=== PATIENT | male | born 1930 | race Caucasian/White ===

== ENCOUNTER 2017-10-01 08:42 | Emergency (ER) | payer MEDICARE, OTHER ==
[~2017-10-01] VITALS: Ht 177.8 cm; Wt 69.0 kg
[~2017-10-01 08:42] MED LIST: ALFU10TA10 PO; CARDIZEM 120 MG PO; CARSR60C PO; GLUC100017 PO; GLUC1CAP36 PO; IMIQ7.5C2 TP; MULT1TAB PO; RIVA10TA PO; SIMV10TA2 PO
[2017-10-01 09:11] LABS: BASOPHILS % (AUTO) 0.2 % (0-1); EOSINOPHILS # (AUTO) 0.3 X10'3 (0-0.9); EOSINOPHILS % (AUTO) 5.4 % (0-6); HEMATOCRIT 49.1 % (42.0-52.0); HEMOGLOBIN 16.5 g/dl (14.0-17.9); LYMPHOCYTES # (AUTO) 0.9 X10'3 (1.1-4.8); LYMPHOCYTES % (AUTO) 15.3 % (21-51); MEAN CORPUSCULAR HEMOGLOBIN 33.5 PG (27.0-31.0); MEAN CORPUSCULAR HGB CONC 33.7 % (33.0-36.5); MEAN CORPUSCULAR VOLUME 99.3 FL (78-98); MEAN PLATELET VOLUME 9.6 FL (7.4-10.4); MONOCYTES # (AUTO) 0.4 X10'3 (0-0.9); MONOCYTES % (AUTO) 6.4 % (2-12); NEUTROPHILS # (AUTO) 4.4 X10'3 (1.8-7.7); NEUTROPHILS % (AUTO) 72.7 % (42-75); PLATELET COUNT 164 X10'3 (140-440); RED BLOOD COUNT 4.94 X10'6 (4.70-6.10); RED CELL DISTRIBUTION WIDTH 13.1 % (11.5-14.5)
[2017-10-01 09:20] LABS: INR 1.2 INR; PARTIAL THROMBOPLASTIN TIME 30 SECONDS (22-32); PROTHROMBIN TIME 12.7 SECONDS (9.0-12.0)
[2017-10-01 09:26] LABS: ALANINE AMINOTRANSFERASE 30 U/L (12-78); ALBUMIN 3.7 G/DL (3.4-5.0); ALBUMIN/GLOBULIN RATIO 1.1 (1.1-1.5); ALKALINE PHOSPHATASE 62 IU/L (46-116); ANION GAP 8 (8-16); ASPARTATE AMINO TRANSFERASE 22 U/L (10-37); BILIRUBIN,TOTAL 0.8 MG/DL (0.1-1.0); BLOOD UREA NITROGEN 11 MG/DL (7-18); BUN/CREATININE RATIO 10.6 (5.4-32.0); CALCIUM 9.2 MG/DL (8.5-10.1); CHLORIDE 102 MMOL/L (99-107); CREATININE 1.04 MG/DL (0.60-1.10); GLUCOSE 213 MG/DL (70-104); SODIUM 139 MMOL/L (135-145); TOTAL CARBON DIOXIDE 28.8 MMOL/L (24-32); eGFR 68 ML/MIN
[2017-10-01] MEDS ORDERED: fentaNYL/PF 50MCG/1 ML 2ML syringe IV ONE (10:35)
[2017-10-01] MEDS ORDERED: MIDAZolam 5mg/ml 2ml vial IV ONE (10:35)
[2017-10-01 11:02] LABS: MAGNESIUM 2.3 MG/DL (1.5-2.4)
[2017-10-01 12:49] VITALS: BP 116/72
== END 2017-10-01 12:52 | disposition home or self-care (01) ==
LOC: ER 08:42
DX: I48.91 Unspecified atrial fibrillation (principal); E78.00 Pure hypercholesterolemia, unspecified; Z79.899 Other long term (current) drug therapy
CPT/HCPCS: 36415; 71045; 80053; 83735; 84484; 85025; 85610; 85730; 92960; 93005; 96374; 99291; J2250; J3010; J7030; 99152; 99153

== ENCOUNTER 2021-02-21 10:15 | Observation (INO) | payer OTHER ==
[~2021-02-21] VITALS: Ht 177.8 cm; Wt 66.0 kg
[2021-02-21] MEDS ORDERED: LIDOcaine Viscous 15ml cup MM ONE (12:00)
[2021-02-21] MEDS ORDERED: mag hydrox/Alum hydrox/simeth 30ml oral suspension PO ONE (12:00)
[2021-02-21] MEDS ORDERED: normal saline 1000ML IV soln IVB ONE (13:10)
[2021-02-21] MEDS ORDERED: normal saline 1000ml 1,000 ML IV ONE (13:10)
[2021-02-21] MEDS ORDERED: pantoprazole 40 MG vial IV ONE (13:15)
[2021-02-21] MEDS ORDERED: SIMV10TA98 PO (13:58)
[2021-02-21] MEDS ORDERED: RIVA20TA PO (13:58)
[2021-02-21] MEDS ORDERED: CETI10TA15 PO (13:58)
[2021-02-21] MEDS ORDERED: SOTA80TA PO (13:58)
[2021-02-21 14:12] LABS: ALANINE AMINOTRANSFERASE 32 U/L (12-78); ALBUMIN/GLOBULIN RATIO 1.1 (1.1-1.5); ALKALINE PHOSPHATASE 91 IU/L (46-116); ANION GAP 7 (8-16); ASPARTATE AMINO TRANSFERASE 28 U/L (10-37); BILIRUBIN,TOTAL 1.3 MG/DL (0.1-1.0); BLOOD UREA NITROGEN 15 MG/DL (7-18); BUN/CREATININE RATIO 15.2 (5.4-32.0); CALCIUM 9.4 MG/DL (8.5-10.1); CHLORIDE 106 MMOL/L (99-107); CREATININE 0.99 MG/DL (0.60-1.10); GLUCOSE 141 MG/DL (70-104); POTASSIUM 4.2 MMOL/L (3.5-5.1); SODIUM 144 MMOL/L (135-145); TOTAL CARBON DIOXIDE 30.7 MMOL/L (24-32); TOTAL PROTEIN 7.6 G/DL (6.4-8.2); eGFR 71 ML/MIN
[2021-02-21] MEDS ORDERED: normal saline 1000ml 1,000 ML IV SCH (14:15)
[2021-02-21] MEDS ORDERED: potassium Cl 20 mEq SR tablet PO PRN ×2 (14:15)
[2021-02-21] MEDS ORDERED: magnesium Cl slow-release 64mg tablet PO PRN (14:15)
[2021-02-21] MEDS ORDERED: potassium Cl 40MEQ/1/2NS 520ml 520 ML IV PRN ×2 (14:15)
[2021-02-21] MEDS ORDERED: morphine 2 MG/ML inj. syringe IV PRN (14:15)
[2021-02-21] MEDS ORDERED: magnesium 4gm in 100ml NS 100 ML IV PRN (14:15)
[2021-02-21] MEDS ORDERED: ondansetron/PF 4mg/2ml inj IV PRN (14:15)
[2021-02-21] MEDS ORDERED: magnesium 2GM in 50ml NS 50 ML IV PRN (14:15)
[2021-02-21] MEDS ORDERED: LIDOcaine Viscous 15ml cup MM PRN (14:25)
[2021-02-21 14:27] LABS: LYMPHOCYTES # (AUTO) 0.9 X10'3 (1.1-4.8)
[2021-02-21 14:29] LABS: BASOPHILS % (AUTO) 0.2 % (0-1); EOSINOPHILS % (AUTO) 0.1 % (0-6); HEMATOCRIT 52.7 % (42.0-52.0); MEAN CORPUSCULAR HEMOGLOBIN 32.3 PG (27.0-31.0); MEAN CORPUSCULAR HGB CONC 32.2 g/dL (33.0-36.5); MEAN CORPUSCULAR VOLUME 100.5 FL (78-98); MONOCYTES # (AUTO) 0.3 X10'3 (0-0.9); MONOCYTES % (AUTO) 3.8 % (2-12); NEUTROPHILS # (AUTO) 5.9 X10'3 (1.8-7.7); NEUTROPHILS % (AUTO) 82.9 % (42-75); PLATELET COUNT 158 X10'3 (140-440); RED BLOOD COUNT 5.25 X10'6 (4.70-6.10); RED CELL DISTRIBUTION WIDTH 13.1 % (11.5-14.5); WHITE BLOOD COUNT 7.1 X10'3 (4.5-11.0)
[2021-02-21 14:52] LABS: PARTIAL THROMBOPLASTIN TIME 33 SECONDS (22-32)
[2021-02-21] MEDS ORDERED: K and/or MAG REPLACEMENT MC SCH (20:00)
--- NOTE | 2021-02-21 20:18 | NUR ---
Report given to MARIO Johnson on the Surg. Floor.
[2021-02-21 20:30] VITALS: BP 147/88
--- NOTE | 2021-02-21 20:30 | NUR ---
Patient in room [facility]. I have received report from MARIO Johnson and had the opportunity to ask questions and assume patient care. Pt assisted pt to room and took report from er. Addendum: 02/21/21 at 2336 by Timbo Marin RN Amended: Links added.
[2021-02-21] MEDS ORDERED: GLUC-237 PO (23:25)
[2021-02-22] VITALS: BP 111/73
--- NOTE | 2021-02-22 05:06 | NUR ---
NO COMPLANTS, IV SL. NO SOB NO PAIN. PT HOPING TO GO HOME THIS MORNING Addendum: 02/22/21 at 0507 by Timbo Marin RN Amended: Links added.
[2021-02-22 06:04] LABS: BASOPHILS % (AUTO) 0.2 % (0-1); EOSINOPHILS # (AUTO) 0.1 X10'3 (0-0.9); EOSINOPHILS % (AUTO) 0.9 % (0-6); HEMATOCRIT 48.3 % (42.0-52.0); HEMOGLOBIN 15.6 g/dl (14.0-17.9); LYMPHOCYTES # (AUTO) 1.5 X10'3 (1.1-4.8); LYMPHOCYTES % (AUTO) 20.3 % (21-51); MEAN CORPUSCULAR HEMOGLOBIN 32.6 PG (27.0-31.0); MEAN CORPUSCULAR HGB CONC 32.4 g/dL (33.0-36.5); MEAN CORPUSCULAR VOLUME 100.6 FL (78-98); MEAN PLATELET VOLUME 10.5 FL (7.4-10.4); MONOCYTES # (AUTO) 0.6 X10'3 (0-0.9); MONOCYTES % (AUTO) 8.8 % (2-12); NEUTROPHILS # (AUTO) 5.2 X10'3 (1.8-7.7); NEUTROPHILS % (AUTO) 69.8 % (42-75); PLATELET COUNT 137 X10'3 (140-440); WHITE BLOOD COUNT 7.4 X10'3 (4.5-11.0)
[2021-02-22 06:08] LABS: ALBUMIN 3.3 G/DL (3.4-5.0); ANION GAP 10 (8-16); BLOOD UREA NITROGEN 14 MG/DL (7-18); BUN/CREATININE RATIO 15.9 (5.4-32.0); CALCIUM 8.6 MG/DL (8.5-10.1); CHLORIDE 110 MMOL/L (99-107); CREATININE 0.88 MG/DL (0.60-1.10); GLUCOSE 87 MG/DL (70-104); MAGNESIUM 2.4 MG/DL (1.5-2.4); POTASSIUM 3.6 MMOL/L (3.5-5.1); SODIUM 146 MMOL/L (135-145); TOTAL CARBON DIOXIDE 25.8 MMOL/L (24-32); eGFR 82 ML/MIN
--- NOTE | 2021-02-22 06:33 | NUR ---
Problems reprioritized. Patient report given, questions answered & plan of care reviewed with MARIO DICKERSON. Addendum: 02/22/21 at 0634 by Timbo Marin RN Amended: Links added.
--- NOTE | 2021-02-22 06:46 | NUR ---
Patient in room [facility]. I have received report from Tere MARTIN and had the opportunity to ask questions and assume patient care.
[2021-02-22 07:00] VITALS: BP 124/74
--- NOTE | 2021-02-22 09:42 | NUR ---
Paged Dr. Lott PAGER ID: [phone] MESSAGE: Surgical Clara MARTIN ext [phone]. RE: Pérez Mays. Patient asking about his Xarelto and other home meds. He has complaints this am, tolerated the breakfast.
[2021-02-22 11:00] VITALS: BP 149/103
--- NOTE | 2021-02-22 11:11 | NUR ---
Dr. Lott called me back, she said she would have to talk to the GI doctor first about the next steps before resuming pills. I communicated this back to the patient. Patient stated "another nurse came here told me I can get a solid food but I told her I cannot do that if they will scope me!" I told the patient that his diet order currently still on clear liquid and I will let him know if anything change. Addendum: 02/22/21 at 1116 by Clara Navarro RN So far we do not have any EGD order yet at this time, I communicated this to the patient.
--- NOTE | 2021-02-22 12:10 | NUR ---
Per Dr. Lott, we do not need to do ST evaluation and that she spoke to Dr. Barlow about this patient. Per Dr. Lott, Dr. Barlow did not recommend EGD and also that she is planning to send patient home today. I asked Dr. Lott about advancing diet to full liquid or soft diet, she replied to me "no need for that we can start him on heart healthy diet!"
--- NOTE | 2021-02-22 14:08 | NUR ---
Paged Dr. Lott PAGER ID: [phone] MESSAGE: Surgical Osvaldo MARTIN [phone]. RE: Pérez Mays. Patient tolerated his solid food lunch, no problem noted. He is looking forward to be discharge today
[2021-02-22] MEDS ORDERED: PANT40TA54 PO (14:22)
--- NOTE | 2021-02-22 15:40 | NUR ---
Discharged patient. Discharge instructions given to patient. Patient verbalized understanding of all instructions made. Peripheral IV catheter removed, tip intact. Instructed patient to ensure he has all his belongings with him before leaving the hospital. New prescription was called in to her pharmacy c/o Nerissa.
== END 2021-02-22 15:29 | disposition home or self-care (01) ==
LOC: ER 10:16 → ED HOLD 14:21 → SUR 3N 20:30
PROVIDERS: ADMIT Internal Medicine; ATTEND Internal Medicine
DX: R13.10 Dysphagia, unspecified (principal); I25.10 Atherosclerotic heart disease of native coronary artery without angina pectoris; I48.20 Chronic atrial fibrillation, unspecified; I25.2 Old myocardial infarction; E78.00 Pure hypercholesterolemia, unspecified; Z95.0 Presence of cardiac pacemaker; Z79.899 Other long term (current) drug therapy; Z98.890 Other specified postprocedural states
CPT/HCPCS: 36415; 71046; 80048; 80053; 83735; 85025; 85610; 85730; 87081; 96361; 96374; 99284; C9113; G0378; J7030

== ENCOUNTER 2021-09-08 08:19 | Emergency (ER) | payer OTHER ==
[~2021-09-08] VITALS: Ht 177.8 cm; Wt 65.9 kg
[~2021-09-08 08:19] MED LIST changes: -ALFU10TA10 PO; -CARDIZEM 120 MG PO; -CARSR60C PO; +CETI10TA15 PO; -GLUC100017 PO; -GLUC1CAP36 PO; -IMIQ7.5C2 TP; -MULT1TAB PO; +PANT40TA54 PO; -RIVA10TA PO; +RIVA20TA PO; -SIMV10TA2 PO; +SIMV10TA98 PO; +SOTA80TA PO
--- NOTE | 2021-09-08 08:43 | NUR ---
SBP 65-71 in triage. Pt is alert and oriented, denies lightheadedness. Escorted to room [address] Rankin and primary RN Nancy mora. NS bolus ordered by .
[2021-09-08] MEDS ORDERED: normal saline 1000ml 1,000 ML IV ONE (08:45)
[2021-09-08] MEDS ORDERED: normal saline 1000ML IV soln IVB ONE ×2 (08:50→11:50)
[2021-09-08 09:16] LABS: HEMOGLOBIN 16.8 g/dl (14.0-17.9); LYMPHOCYTES # (AUTO) 0.2 X10'3 (1.1-4.8); MEAN PLATELET VOLUME 10.2 FL (7.4-10.4); PLATELET COUNT 153 X10'3 (140-440); WHITE BLOOD COUNT 7.4 X10'3 (4.5-11.0)
[2021-09-08 09:17] LABS: BASOPHILS % (AUTO) 0.1 % (0-1); EOSINOPHILS % (AUTO) 0.6 % (0-6); HEMATOCRIT 51.2 % (42.0-52.0); LYMPHOCYTES % (AUTO) 3.2 % (21-51); MEAN CORPUSCULAR HEMOGLOBIN 32.6 PG (27.0-31.0); MEAN CORPUSCULAR HGB CONC 32.8 g/dL (33.0-36.5); MEAN CORPUSCULAR VOLUME 99.4 FL (78-98); MONOCYTES # (AUTO) 0.3 X10'3 (0-0.9); MONOCYTES % (AUTO) 3.5 % (2-12); NEUTROPHILS # (AUTO) 6.9 X10'3 (1.8-7.7); NEUTROPHILS % (AUTO) 92.6 % (42-75); RED BLOOD COUNT 5.15 X10'6 (4.70-6.10); RED CELL DISTRIBUTION WIDTH 13.4 % (11.5-14.5)
[2021-09-08 09:30] LABS: ALANINE AMINOTRANSFERASE 26 U/L (12-78); ALBUMIN 3.7 G/DL (3.4-5.0); ALBUMIN/GLOBULIN RATIO 1.2 (1.1-1.5); ALKALINE PHOSPHATASE 72 IU/L (46-116); ANION GAP 14 (8-16); ASPARTATE AMINO TRANSFERASE 24 U/L (10-37); BILIRUBIN,TOTAL 1.8 MG/DL (0.1-1.0); BLOOD UREA NITROGEN 20 MG/DL (7-18); CALCIUM 9.1 MG/DL (8.5-10.1); CHLORIDE 103 MMOL/L (99-107); CREATININE 1.33 MG/DL (0.60-1.10); GLUCOSE 163 MG/DL (70-104); LIPASE 60 U/L (73-393); POTASSIUM 4.4 MMOL/L (3.5-5.1); SODIUM 140 MMOL/L (135-145); TOTAL CARBON DIOXIDE 23.5 MMOL/L (24-32); TOTAL PROTEIN 6.9 G/DL (6.4-8.2); eGFR 51 ML/MIN
[2021-09-08] MEDS ORDERED: digoxin 250mcg/ml 2ml ampule IV ONE (09:45)
[2021-09-08] MEDS ORDERED: ondansetron/PF 4mg/2ml inj IV ONE (10:35)
[2021-09-08 12:41] LABS: CLARITY,URINE SLIGHTLY CLOUDY (Clear); GLUCOSE, URINE NEGATIVE (Neg); KETONES,URINE 15 mg/dl (Neg); LEUKOCYTE ESTERASE ,URINE NEGATIVE (Neg); NITRITES, URINE NEGATIVE (Neg); OCCULT BLOOD,URINE NEGATIVE (Neg); PH,URINE 5.5 (4.8-8.0); PROTEIN,URINE TRACE mg/dl (Neg); UROBILINOGEN,URINE 0.2 E.U/dL (0.2-1.0)
[2021-09-08 12:45] LABS: COLOR,URINE AMBER (Yellow); UA COLLECTION TYPE NON-SPECIFIED
[2021-09-08 12:47] LABS: BACTERIA,URINE NONE SEEN /HPF (Neg); HYALINE CASTS >30 /LPF (NEGATIVE); MUCUS STRANDS MANY /LPF (Neg); RBC,URINE NONE SEEN /HPF (0-2); SQUAMOUS EPITHELIAL CELL,UR NONE SEEN /LPF (FEW); WBC,URINE 0-4 /HPF (0-4)
[2021-09-08 13:28] VITALS: BP 121/70
[2021-09-08 13:40] LABS: C DIFF SPECIMEN=DIARRHEA? ACCEPTABLE; C DIFFICILE TOXINS A&B NEGATIVE (Neg)
== END 2021-09-08 13:32 | disposition home or self-care (01) ==
LOC: ER 08:20
DX: A05.9 Bacterial foodborne intoxication, unspecified (principal); R19.7 Diarrhea, unspecified; I48.91 Unspecified atrial fibrillation; I25.10 Atherosclerotic heart disease of native coronary artery without angina pectoris; E78.00 Pure hypercholesterolemia, unspecified; I25.2 Old myocardial infarction; Z98.890 Other specified postprocedural states; Z79.899 Other long term (current) drug therapy
CPT/HCPCS: 36415; 80053; 81001; 83690; 85025; 87045; 87046; 87324; 87449; 89055; 96361; 96374; 96375; 99285; J1160; J2405; J7030; 93005

== ENCOUNTER 2021-09-10 07:20 | Emergency (ER) | payer OTHER ==
[~2021-09-10] VITALS: Ht 175.3 cm; Wt 65.9 kg
[2021-09-10 07:46] VITALS: BP 120/84
[2021-09-10] MEDS ORDERED: epiNEPHrine 1 MG/ML 1 ml ampule **BRONCH ONLY ONE (08:33)
[2021-09-10] MEDS ORDERED: LIDOCAINE 4% (40MG/ML) topical solution 50ml **BRONCH ONLY ONE (08:34)
[2021-09-10] MEDS ORDERED: lidocaine 2% viscous 15 ML cup ***bronch room only MM ONE (08:34)
== END 2021-09-10 09:35 | disposition home or self-care (01) ==
LOC: ER 07:21
DX: R03.0 Elevated blood-pressure reading, without diagnosis of hypertension (principal); I48.91 Unspecified atrial fibrillation; I25.10 Atherosclerotic heart disease of native coronary artery without angina pectoris; E78.00 Pure hypercholesterolemia, unspecified; I25.2 Old myocardial infarction; Z95.5 Presence of coronary angioplasty implant and graft; Z79.899 Other long term (current) drug therapy
CPT/HCPCS: 99281; J0171